=== PATIENT | female | born 1950 | race Caucasian/White ===

== ENCOUNTER → 2021-09-15 | Outpatient (CLI) | payer MEDICARE, SELFPAY ==
--- NOTE | 2021-09-15 11:49 | US_ITS ---
INDICATION: Thyroid nodules EXAMINATION: Ultrasound US Thyroid (eg thyroid, parathyroid, parotid) TECHNIQUE: Martin scale and color doppler imaging was performed of the thyroid gland. COMPARISON: Thyroid ultrasound 09/07/2021. Findings: Isthmus measures 2 mm in thickness. Right thyroid lobe measures 1.7 x 4.8 x 1.1 cm. Left thyroid lobe measures 1.3 x 4.6 x 0.9 cm. Right thyroid lobe lesion, 10 x 5 x 7 mm, superior pole: Completely solid, very hypoechoic, wider than tall, smooth margin without echogenic foci, moderately suspicious nodule. This does not appear significantly changed compared to comparison exam. Right thyroid lobe lesion 8 x 6 x 8 mm., Inferior pole: Solid and cystic, hypoechoic nodule, wider than tall with smooth margins and a single echogenic focus, mildly suspicious nodule, unchanged compared to prior exam. Right thyroid lobe lesion 11 x 7 x 12 mm, lower pole: Solid, hypoechoic, wider than tall, smoothly marginated nodule with multiple echogenic foci without ringdown artifact; highly suspicious nodule due to the echogenic foci. Left thyroid lobe lesion 3 x 2 x 3 mm, upper pole: Almost completely cystic, anechoic nodule, wider than tall with smooth margins and no echogenic foci; benign nodule. Left thyroid lobe lesion 4 x 3 x 3 mm, upper pole: Cystic, anechoic, wider than tall, smoothly marginated nodule without calcifications, benign nodule. US/Thyroid IMPRESSION: 1. 1 cm, right thyroid lobe nodule, moderately suspicious nodule for which follow-up imaging is recommended in one year. 2. 8 mm mildly suspicious nodule, right thyroid lobe, for which no follow-up is recommended. 3. 12 mm, highly suspicious, right thyroid lobe nodule for which FNA is recommended. Electronically Signed: Rony Mendenhall DO at 0:11 EDT ,
== END | disposition home or self-care (01) ==
PROVIDERS: Visit Provider Surgery
DX: E04.1 Nontoxic single thyroid nodule (principal); E21.5 Disorder of parathyroid gland, unspecified
CPT/HCPCS: 76536

== ENCOUNTER → 2021-09-22 | Outpatient (CLI) | payer MEDICARE, SELFPAY ==
--- NOTE | 2021-09-22 09:12 | ASPIG_PTH ---
PATIENT: SUDHA WALLS LOC: [facility]#:[id number] AGE/SX: 71/F ROOM: RE09/22/[address]: Dr. Rony Kebede MD : 1950 BED: DIS: 09/22/2021 SPEC #: [id number] RECD: 09/22/21 11:40 STATUS: JACKI MCCANN #: [id number] STEFANIE: 09/22/21 09:[address]: Rony Kebede DEPT: CYTOLOGY RECD BY: Dahiana Fleming Tissues: A - Thyroid gland, NOS B - Thyroid gland, NOS C - Thyroid gland, NOS D - Thyroid gland, NOS Procedures: FNA Specimen Adequacy Special Stain Group II Surgery Specimen Level IV Cytology Other HEADER OPERATION: Right thyroid fine needle aspiration PRE-OP DIAGNOSIS: Multiple thyroid nodules TISSUE SUBMITTED: A - Right superior thyroid nodule fluid, B - Right superior thyroid nodule x4 slides, C - Right inferior thyroid nodule fluid, D - Right inferior thyroid nodule x4 slides DIAGNOSIS CYTOLOGY A. Right superior thyroid nodule fluid, fine needle aspiration (cytospin and cell block): A few clusters of benign follicular cells noted. B. Right superior thyroid nodule, fine needle aspiration (smears): Consistent with benign follicular/colloid nodule ([place] category grade II). Adequate for evaluation. C. Right inferior thyroid nodule fluid, fine needle aspiration (cytospin and cell block): Consistent with benign follicular/colloid nodule ([place] category grade II). Adequate for evaluation. D. Right inferior thyroid nodule, fine needle aspiration (smears): Bloody smears. See comment. SJ:[email or web address] 09/23/2021 COMMENT D. Follicular cells are not seen. Correlation with clinical, radiologic findings and appropriate follow up are necessary. CYTOLOGY STUDY Slides are reviewed. CYTOLOGY GROSS A - Received is 15 ml of red cloudy fluid labeled with the patient's name and and designated per the requisition as right superior thyroid nodule. Submitted for cytology preparation including cell block. B - Received are four smears labeled with the patient's name and designated per the requisition as right superior thyroid nodule. Submitted for staining. C - Received is 30 ml of red cloudy fluid labeled with the patient's name and and designated per the requisition as right inferior thyroid nodule. Submitted for cytology preparation including cell block. D - Received are four smears labeled with the patient's name and designated per the requisition as right inferior thyroid nodule. Submitted for staining. / otoniel 09/22/2021 TC:5 CPT: 60419 x2, 11515 x4
== END | disposition home or self-care (01) ==
LOC: LABSPEC 11:44
PROVIDERS: Referring Provider Surgery; Visit Provider Surgery
DX: E04.2 Nontoxic multinodular goiter (principal)
CPT/HCPCS: 88161; 88172; 88305; 88313

== ENCOUNTER → 2022-09-15 | Outpatient (CLI) | payer MEDICARE, SELFPAY ==
--- NOTE | 2022-09-15 10:43 | US_ITS ---
STUDY: THYROID ULTRASOUND REASON FOR EXAM: Female, 72 years old. Known thyroid nodules TECHNIQUE: Ultrasound evaluation of the thyroid was performed with real-time and static kaur-scale imaging. COMPARISON: None. FINDINGS: RIGHT LOBE: The right lobe of the thyroid gland measures 4.3 x 2.3 x 1.9 cm. There is a homogeneous echotexture. Multiple stable solid and cystic complex nodules. Largest measures 0.9 x 0.8 x 0.8 cm. Multiple stable subcentimeter simple cysts. LEFT LOBE: The left lobe of the thyroid gland measures 4.0 x 1.0 x 1.1 cm. There is a homogeneous echotexture. Multiple simple cysts, largest measures 0.4 x 0.3 x 0.4 cm. ISTHMUS: The isthmus measures 2 mm. The regional lymph nodes are normal. US/Thyroid IMPRESSION: Normal-sized homogeneous thyroid gland with multiple solid/cystic nodules in the right lobe unchanged from the previous study. Nodules are mixed cystic and solid, hypoechoic, [id number], smoothly marginated and contains no echogenic foci. TI-RADS points: 3. TI-RADS category: TR3. This nodule is mildly suspicious but no FNA or follow-up is necessary given the small size of this nodule. Multiple subcentimeter simple cysts in both lobes of the thyroid need no specific follow-up Electronically Signed: Viral Denise MD at 15:36 EDT ,
== END | disposition home or self-care (01) ==
PROVIDERS: Referring Provider Surgery; Visit Provider Surgery
DX: E04.2 Nontoxic multinodular goiter (principal); E21.3 Hyperparathyroidism, unspecified
CPT/HCPCS: 76536